=== PATIENT | male | born 1995 | race Two or more races ===

== ENCOUNTER 2019-04-19 11:58 | Emergency (ER) | payer OTHER ==
[~2019-04-19] VITALS: Ht 165.1 cm; Wt 83.9 kg
[2019-04-19 12:04] VITALS: BP 168/85
== END 2019-04-19 12:48 ==
LOC: ER 12:01
DX: S00.83XA Contusion of other part of head, initial encounter (principal); Y08.89XA Assault by other specified means, initial encounter; Y93.89 Activity, other specified; Y92.89 Other specified places as the place of occurrence of the external cause; Y99.8 Other external cause status

== ENCOUNTER 2019-11-26 14:36 | Emergency (ER) | payer OTHER ==
[~2019-11-26] VITALS: Ht 170.2 cm; Wt 68.0 kg
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
--- NOTE | 2019-11-26 14:54 | NUR ---
PT OK TO BOOK. Patient discharged to home in stable condition. Written and verbal after care instructions given. Patient verbalizes understanding of instruction. VSS.
[2019-11-26 14:55] VITALS: BP 128/82
== END 2019-11-26 14:56 ==
LOC: ER 14:38
DX: Z02.89 Encounter for other administrative examinations (principal); Y08.89XA Assault by other specified means, initial encounter; Y93.89 Activity, other specified; Y92.89 Other specified places as the place of occurrence of the external cause; Y99.8 Other external cause status